=== PATIENT | female | born 1995 | race Caucasian/White ===

== ENCOUNTER 2025-03-10 21:25 | Emergency (ER) | payer BC, SELFPAY ==
[2025-03-10 21:33] VITALS: BP 119/86
[2025-03-10 22:01] LABS: % Basophils 1.1 % (0-2); % Eosinophils 1.7 % (0-6); % Immature Granulocytes 0.2 % (0-0.5); % Lymphocytes 41.2 % (20.5-51.1); % Monocytes 5.7 % (1.7-9.3); % Neutrophils 50.1 % (42.2-75.2); Absolute Basophils 0.1 10^3/uL (0-0.2); Absolute Eosinophils 0.1 10^3/uL (0-0.7); Absolute Lymphocytes 2.2 10^3/uL (1.2-3.4); Absolute Monocytes 0.3 10^3/uL (0.1-0.6); Absolute Neutrophils 2.7 10^3/uL (1.4-6.5); Hematocrit 38.4 % (37.0-47.0); Mean Corp Hgb Conc. 36.5 g/dL (33.0-37.0); Mean Corpuscular Hgb 32.5 pg (27.0-31.0); Mean Corpuscular Volume 89.1 fL (81.0-99.0); Mean Platelet Volume 10.5 fL (7.4-10.4); Nucleated Red Blood Cells % 0 %; Platelet Count 243 10^3/uL (130-400); Red Blood Cell Count 4.31 10^6/uL (4.20-5.40); Red Cell Dist. Width 11.8 % (11.5-14.5); White Blood Cell Count 5.4 10^3/uL (4.8-10.8)
[2025-03-10 22:12] LABS: HCG, Serum Qualitative Screen Negative
[2025-03-10 22:17] LABS: ALT (SGPT) 14 U/L (0-35); AST (SGOT) 17 U/L (14-36); Albumin 4.3 g/dl (3.5-5.0); Alkaline Phosphatase 62 U/L (38-126); Blood Urea Nitrogen 19 mg/dl (7-17); Calcium 9.3 mg/dl (8.4-10.2); Carbon Dioxide 24 mmol/L (22-30); Chloride 109 mmol/L (98-107); Glucose 91 mg/dl (70-99); Sodium 138 mmol/L (135-145); Total Bilirubin 0.6 mg/dl (0.2-1.3); Total Protein 6.7 g/dl (6.3-8.2); eGFR > 60.00
--- NOTE | 2025-03-11 02:55 | ED.GENMED ---
History of Present Illness
General
Chief Complaint: Visual Problem
Source: patient and family
Exam Limitations: none
Time Seen by Provider: 03/11/25 02:27
Nursing documentation reviewed up to this point in time: agreed with
History of Present Illness
History of Present Illness:
Pleasant 29-year-old female presents to the emergency department with headache and visual disturbances. The symptoms occurred after a syncopal episode. She states that this was going on for several weeks. Patient has been to her family doctor in
urgent care without any definitive etiology. She states that she has a bump in the back of her head. She states that this bump is tender to palpation. She does report right-sided headache that is intermittent in nature. Denies any other symptoms
at this time.
Review of Systems
Review of Systems
Allergies reviewed?: Yes
All Other Systems: ROS reviewed and negative except as documented in HPI and ROS
Constitutional: Reports no symptoms
EENT: Reports no symptoms
Respiratory: Reports no symptoms
Cardiac: Reports no symptoms
ABD/GI: Reports no symptoms
: Reports no symptoms
Musculoskeletal: Reports no symptoms
Skin: Reports no symptoms
Neurological: Reports dizzy and headache
Endocrine: Reports no symptoms
Hematologic/Lymphatic: Reports no symptoms
Psychiatric: Reports no symptoms
Phy Exam
General Physical Exam
General Presentation: well appearing and no apparent distress
General Skin: warm and dry
General Habitus: normal
General Mental: alert
General Hydration: appears well hydrated
ENT Exam
ENT Exam: EOMI, pharynx normal, neck supple and normocephalic
Eye Exam
Eye Exam: PERRL, cornea clear and conjunctiva normal
Eye Exam General: PERRL: bilateral and EOM intact: bilateral
Tonometry: Side: Left (right 12)
Pressure: 14
Cardiovascular Exam
Cardiovascular Exam: regular rate/rhythm, no edema, no murmur and normal peripheral pulses
Pulmonary Exam
Pulmonary Exam: lungs clear, no respiratory distress, no rales, no crackles, no rhonchi, no stridor, no wheezing and no cough
Gastrointestinal Exam
Gastrointestinal Exam: normal bowel sounds, non tender, soft, no organomegaly, no pulsatile mass and non distended
Neurological Exam
Neurological Exam: alert, oriented x3, no motor deficits and speech normal
Musculoskeletal Exam
Musculoskeletal Exam: full ROM and no edema
Skin Exam
Skin Exam: normal color, warm/dry, no rash and no petechia
Psychiatric Exam
Psychiatric Exam: normal mood/affect
Course
Orders/Labs/Results
Orders:
Orders
03/10/25 21:40
Test Result ONCE
03/10/25 21:52
Complete Blood Count/With Diff Urgent
Comprehensive Metabolic Panel Urgent
HCG, Serum Qualitative Screen Urgent
Comment: Notify provider if positive test present
03/11/25 02:46
CT Head W/o Iv Contrast Urgent
Comment:
Reason For Exam: visual changes
03/11/25 04:19
Dexamethasone Sod Phosphate [Decadron] 10 mg IV NOW STA
Diphenhydramine [Benadryl] 25 mg IV NOW STA
Ketorolac [Toradol] 15 mg IV NOW STA
Metoclopramide [Reglan] 10 mg IV NOW STA
03/11/25 04:30
Metoclopramide [Reglan] 10 mg .ROUTE .STK-MED ONE
Abnormal Lab Results
03/10/25
21:52
MCH 32.5 H pg
(27.0-31.0)
MPV 10.5 H fL
(7.4-10.4)
Chloride 109 H mmol/L
(98-107)
BUN 19 H mg/dl
(7-17)
03/10/25 21:52
05/29/25 21:52
Vital Signs
Initial and Last Documented VS:
Initial Vital Signs
Temp Pulse Resp BP Pulse Ox
98.2 F 95 20 119/86 99
03/10/25 21:33 03/10/25 21:33 03/10/25 21:33 03/10/25 21:33 03/10/25 21:33
Last Documented Vital Signs
Temp Pulse Resp BP Pulse Ox
98.2 F 77 18 93/52 100
03/10/25 21:33 03/11/25 04:35 03/11/25 04:35 03/11/25 05:02 03/11/25 04:35
Update Note
Update Note:
NAME: TE GALAN
DATE OF EXAM: 03/11/2025
Patient No: [id number]
Physician: DENNYS^Cortez
Date of : 1995
Past Medical History (entered by Technologist):
Reason For Exam (entered by Technologist):
Other Notes (entered by Technologist): pt. arrives stating that two weeks ago had a syncopal episode after [place] a [place]. she's had a headache and seeing stars consistantly since the syncopal episode. State there is bump to the back of her head
that feels tender. Pt. states that tonight she had a moment were her vision went 'kaleidoscope' and then couldn't see out of her R eye
Additional Information (per Vision Radiologist):
CT HEAD
IMPRESSION:
No acute hemorrhage, herniation, or hydrocephalus.
No calvarial fracture.
The visualized paranasal sinuses and mastoid air cells are clear.
Intraocular pressure measured as normal.
Patient's visual issues have resolved. She still has minor headache. Not the worst headache of her life.
Patient states that she is feeling better. Wishes to be discharged.
ED Attending Note
-
Portions of this chart may have been created with voice recognition software.� Occasional wrong word or��sound alike� substitutions may have occurred due to the inherent limitations of voice recognition software.
Discharge Plan
Departure
Patient Disposition: Home (Routine Discharge)
Date of Disposition: 03/11/25
Time of Disposition: 05:16
Patient with high blood pressure during this ER visit?: No
Condition: Good
Discharge Problem:
Headache, Floaters
Instructions: Migraines (DC), Headache, Adult (DC), Double Vision (DC)
Referrals:
Vinny Deal MD [Active, Ophthalmology] - As needed
Duy Jaimes DO [Family Provider, Family Practice]
Activity Restrictions/Additional Instructions:
Thank You for choosing [facility].
It was a pleasure meeting you and taking part in your care. We hope for your continued healing and wellness.
Please read discharge instructions in their entirety. However, they are for general education and may not describe your exact diagnosis at discharge. Information on your ER visit and medical conditions were discussed with you along with appropriate
follow up information...
If indicated, please take your medications as instructed and indicated on discharge paperwork.
Please schedule a follow up appointment as directed. Call to schedule an appointment
Please return to the emergency department with ANY change in, persisting, or worsening of symptoms. If any of your symptoms do not improve, or persist, or become more severe within 6-12 hours, please return to the emergency department for further
care.
Please return to the emergency department if you develop a headache, neck pain/stiffness, fever greater than 100.4F, chest pain, shortness of breath, persistent nausea, vomiting, slurred speech, difficulty walking, numbness/tingling, weakness, signs
of infection or any other symptoms that are worrisome to you.
If you have any questions or concerns please do not hesitate to call the Hospital at or E-mail me directly at [email or web address]
Interventions
Interventions:
*Risk Screen - Suicide Last Done: 03/10/25 21:33
*General Assessment Last Done: 03/10/25 21:33
*Neglect/Abuse Screening Last Done: 03/10/25 21:33
*ED- Fall Risk Assessment Last Done: 03/11/25 02:21
*ED COVID-19 Vaccine History Last Done: 03/11/25 02:22
ED- Neurological Assessment Last Done: 03/11/25 02:21
ED-EENT Assessment Last Done: 03/11/25 02:21
ED Swallowing Screen Last Done: 03/11/25 02:21
Discharge Date and Time
Print Language: SAO TOMEAN
[2025-03-11] MEDS: REGLAN 10 MG IV (04:25)
[2025-03-11] MEDS: BENADRYL 25 MG IV (04:26)
[2025-03-11] MEDS: TORADOL 15 MG IV (04:28)
[2025-03-11] MEDS: DECADRON 10 MG IV (04:28)
[2025-03-11 04:35] VITALS: BP 102/63
[2025-03-11 05:02] VITALS: BP 93/52
== END 2025-03-11 05:23 | disposition home or self-care (01) ==
LOC: EMR 21:25
PROVIDERS: Emergency Medicine; EMERGENCY PHYSICIAN Student in an Organized Health Care Education/Training Program; FAMILY PHYSICIAN Family Medicine
DX: R51.9 Headache, unspecified (principal); H43.399 Other vitreous opacities, unspecified eye
CPT/HCPCS: 99284; 96374; 96375; 70450; 80053; 84703; 85025